=== PATIENT | male | born 1990 | race African-American/Black ===

== ENCOUNTER 2016-06-29 18:22 | Emergency (ER) | payer SELFPAY ==
[2016-06-29] VITALS (10 sets, daily range): BP systolic 139–159; BP diastolic 57–71
[~2016-06-29] VITALS: Ht 182.9 cm; Wt 113.4 kg
[2016-06-29] MEDS ORDERED: Haloperidol 5mg/ml Inj IM ONE (18:45)
[2016-06-29] MEDS ORDERED: DiphenhydrAMINE 50mg/ml Inj IM ONE (18:45)
[2016-06-29] MEDS ORDERED: LORazepam Inj 2mg/ml 1ml IM ONE (18:45)
--- NOTE | 2016-06-29 21:40 | Emergency Room Report ---
History of Present Illness General Chief Complaint: Behavioral Complaint Source: EMS Present Illness HPI The patient is a 26-year-old male [place] by ambulance from the [place] for acting bizarrely. The patient is unable to provide any additional this time. Paramedics state that the patient has been physically aggressive and have the patient in restraints. Allergies: Coded Allergies: No Known Allergies (Unverified , 06/29/16) Patient History Past Medical History: see triage record Pertinent Family History: none Social History: Reports: alcohol use, drug use - marijuana Reviewed Nursing Documentation: PMH: Agreed, PSxH: Agreed Nursing Documentation-PMH Past Medical History Deferred: Pt Cognitively Impaired Review of Systems All Other Systems: negative except mentioned in HPI Physical Exam Vital Signs Date Time Temp Pulse Resp B/P Pulse Ox O2 Delivery O2 Flow Rate FiO2 06/29/16 18:24 138 20 159/57 98 Room Air 06/29/16 18:30 98.9 Sp02 EP Interpretation: reviewed, normal General Appearance: alert, GCS 15, other - physically aggressive Head: normocephalic, atraumatic Eyes: bilateral eye PERRL, bilateral eye normal inspection ENT: hearing grossly normal, normal pharynx, no angioedema, normal voice Neck: full range of motion, supple/symm/no masses Respiratory: chest non-tender, lungs clear, normal breath sounds, no respiratory distress, no accessory muscle use, no wheezing, speaking full sentences Cardiovascular #1: regular rate, rhythm, no edema Gastrointestinal: normal bowel sounds, non tender, soft, non-distended, no guarding, no rebound Musculoskeletal: back normal, gait/station normal, normal range of motion, non- tender Neurologic: alert, sensory intact, normal gait - at time of DC, oriented - at time of DC Psychiatric: anxious Reflexes: 3+ bicep (R), 3+ bicep (L), 3+ tricep (R), 3+ tricep (L), 3+ knee (R) , 3+ knee (L) Skin: normal color, no rash, warm/dry, well hydrated Lymphatic: no adenopathy Medical Decision Making PA Attestation Dr. Nelson is my supervising physician. Patient management was discussed with my supervising physician Diagnostic Impression: Primary Impression: Marijuana intoxication ER Course The patient is a 26-year-old male brought [place] by ambulance from the restaurant for acting bizarrely. DDx: psychosis, alcohol intoxication, drug abuse PE: Pt is initially tachycardic. Pt is thrashing about. Unable to follow commands at first. Head NC/AT. Lungs CTA bilat. RRR. Skin warm and dry. Pt placed in behavioral restraints as he poses a risk to staff. The pt is given IM benadryl, haldol, and ativan. The restraints are lifted and pt is much calmer. Pt was given time to rest and is now A&Ox3. Pt is coherent and calm. Normal gait. Pt apologizes and states he only used marijuana today. Pt denies any other medical Hx. ER precautions given and pt is DC'ed home. Last Vital Signs Date Time Temp Pulse Resp B/P Pulse Ox O2 Delivery O2 Flow Rate FiO2 06/29/16 20:50 98.7 105 16 139/71 99 Room Air Status: improved Disposition: HOME, SELF-CARE Condition: Improved Patient Instructions: Cannabis Use Disorder Additional Instructions: I discussed my findings with the patient. All questions and concerns have been answered. Treatment and medication compliance have been addressed. I advised the patient that they need to follow up with PMD in 3-5 days. Return to ED if symptoms worsen, new symptoms arise, or if needed for any reason. Patient verbalized understanding of discharge instructions. The patient agrees he will not use drugs LAVELLE SHELBY Jun 29, 2016 21:40
== END 2016-06-29 20:50 | disposition home or self-care (01) ==
LOC: EDBD 18:22 → EMR 18:55
DX: F12.929 Cannabis use, unspecified with intoxication, unspecified (principal)
CPT/HCPCS: 96372; 99283; J1200; J1630